=== PATIENT | male | born 1965 | race Caucasian/White ===

== ENCOUNTER 2018-01-15 12:51 | Emergency (ER) | payer OTHER ==
[2018-01-15] MEDS ORDERED: Lidocaine 1% MPF* 2 ML VIAL INJ ONE (13:03)
[2018-01-15 13:04] VITALS: BP 136/62
[2018-01-15] MEDS ORDERED: Lidocaine 1% MPF* 2 ML VIAL ONE (13:05)
--- NOTE | 2018-01-15 13:20 | ED ---
Laceration/Wound HPI - HPI Summary HPI Summary: 52M presents with lure in right thumb today. He attempted to remove it but was unable to. He believes his tetanus is up to date. no other complaints. - History of Current Complaint Stated Complaint: FISHING LURE IN FINGER Time Seen by Provider: 01/15/18 13:02 Pain Intensity: 0 - Allergy/Home Medications Allergies/Adverse Reactions: Allergies Allergy/AdvReac Type Severity Reaction Status Date / Time No Known Allergies Allergy Verified 01/15/18 13:04 Home Medications: Home Medications Ascorbic Acid TAB* [Vitamin C TAB*] 500 mg PO DAILY 01/15/18 [History Confirmed 01/15/18] Cetirizine* [ZyrTEC 10 MG TAB*] 10 mg PO DAILY 01/15/18 [History Confirmed 01/15] PMH/Surg Hx/FS Hx/Imm Hx Endocrine/Hematology History: Denies: Hx Diabetes, Hx Thyroid Disease Cardiovascular History: Denies: Hx Hypertension Respiratory History: Denies: Hx Asthma, Hx Chronic Obstructive Pulmonary Disease (COPD) GI History: Denies: Hx Ulcer Infectious Disease History: No Infectious Disease History: Denies: Hx Hepatitis, Hx Human Immunodeficiency Virus (HIV), Traveled Outside the [place] in Last 30 Days - Family History Known Family History: Negative: Diabetes - Social History Alcohol Use: Occasionally Substance Use Type: Reports: Marijuana Smoking Status (MU): Never Smoked Tobacco Review of Systems Negative: Fever Negative: Chest Pain Negative: Shortness Of Breath Positive: Other - fish lure right thumb All Other Systems Reviewed And Are Negative: Yes Physical Exam Triage Information Reviewed: Yes Vital Signs On Initial Exam: Initial Vitals Temp Pulse Resp BP Pulse Ox 98.2 F 80 18 136/62 96 01/15/18 12:59 01/15/18 12:59 01/15/18 12:59 01/15/18 12:59 01/15/18 12:59 Vital Signs Reviewed: Yes Appearance: Positive: Well-Appearing Skin: Positive: Warm, Dry, Other - fish lure in pad right thumb Head/Face: Positive: Normal Head/Face Inspection Eyes: Positive: Normal, Conjunctiva Clear Respiratory/Lung Sounds: Positive: Clear to Auscultation, Breath Sounds Present Cardiovascular: Positive: Normal, RRR Musculoskeletal: Positive: Strength/ROM Intact - right thumb, Other - capillary refill<2 secs Neurological: Positive: Normal Psychiatric: Positive: Normal Procedures - Procedure Summary Procedure Summary: fish lure removal digital block 1% lidocaine small incision to remove curly, foreign body was removede Diagnostics - Vital Signs Vital Signs Temp Pulse Resp BP Pulse Ox 01/15/18 12:59 98.2 F 80 18 136/62 96 - Laboratory Lab Statement: Any lab studies that have been ordered have been reviewed, and results considered in the medical decision making process. Laceration Repair Course/Dx - Course Course Of Treatment: 52M presents with lure in right thumb today. He attempted to remove it but was unable to. He believes his tetanus is up to date. no other complaints. on exam has fishing lure in pad of right thumb. cleaned area and performed digital block and placed incision to remove lure. told to keep area clean. patient understand and agrees with plan. - Differential Dx Differental Diagnoses: Foreign Body, Laceration, Puncture Wound - Clinical Impression Provider Diagnoses: Foreign body of thumb Discharge - Sign-Out/Discharge Documenting (check all that apply): Discharge/Admit/Transfer - Discharge Plan Condition: Good Disposition: HOME Patient Education Materials: Soft Tissue Foreign Body (ED) Referrals: No Primary Care Phys,NOPCP [Primary Care Provider] - Additional Instructions: Wash area with soap and water apply neosporin Return to ED if develop any signs of infection or any new or worsening symptoms - Billing Disposition and Condition Condition: GOOD Disposition: HOME
== END 2018-01-15 13:25 | disposition home or self-care (01) ==
LOC: UCEAST 12:51
DX: S61.041A Puncture wound with foreign body of right thumb without damage to nail, initial encounter (principal); X58.XXXA Exposure to other specified factors, initial encounter; Y93.9 Activity, unspecified; Y92.9 Unspecified place or not applicable
CPT/HCPCS: 10120; 99201; G0463